=== PATIENT | male | born 1985 | race Caucasian/White ===

== ENCOUNTER 2021-12-08 12:13 | Observation (INO) | payer BC ==
--- OUTSIDE RECORDS SUMMARY | 2021-12-08 12:15 | XMS REPORT | Continuity of Care Document ---
:1985 Author Organization [facility] t Address [address] [place] [address] [address]. [address] [place] [address] Care Team Providers Name Role Phone Toya SPENCER Attending Clinician Unavailable Trevon Desir DO Attending Clinician Tj SEVERINO I Attending Clinician Bipin Leon MD Attending Clinician BIPIN LEON Attending Clinician Unavailable Doctor Unassigned, Name Attending Clinician Unavailable Nena SEVERINO Attending Clinician Payers Payer Name Policy Type Policy Number Effective Date Expiration Date S ource PPO/EPO - BCBS [id number] CHOICE/CHOICE [id number] PLUS/OPTIONS [facility] Problems Condition Condition Condition Status Onset Resolution Last Treating Co mments Source Name Details Category Date Date Treatment Clinician Date Screening Screening Disease Active 2017-09 Perry anurag for for 1-30 College metabolic metabolic 00:00: of disorder disorder 00 Medici n e Screening Screening Disease Active 2017-09 Perry anurag for for 1-30 College metabolic metabolic 00:00: of disorder disorder 00 Medici n e Hypogonadi Hypogonadi Disease Active 2016-09 [employer] [facility] sm in male sm in male 2-05 Co llege 00:00: of 00 Medicin e Allergies, Adverse Reactions, Alerts Allergy Allergy Status Severity Reaction(s) Onset Inactive Treating Comm ents Source Name Type Date Date Clinician Fish-Enrrique Propensi Active Anaphylaxis 2018-09 [facility] ived ty to 0-10 College Products adverse 00:00: of reaction 00 Medicin s to e drug [place] [address] [place] ty to Vomiting 01-13 [place] adverse 00:00: of reaction 00 Medicin s to e drug NO KNOWN Drug Active [facility] ALLERGIE Class ity of S [facility] Social History Social Habit Start Date Stop Date Quantity Comments Source Exposure to Not sure [facility] Martha e of SARS-CoV-2 Medicine (event) Tobacco use and 2020-12-13 2020-12-13 Never used [facility] Co llege of exposure 00:00:00 00:00:00 Medicine Alcohol intake 2020-07-26 2020-07-26 Ex-drinker University of 00:00:00 00:00:00 (finding) [facility] Alcohol Comment 2016-12-12 2016-12-12 socially [facility] Co llege of 00:00:00 00:00:00 Medicine Sex Ass[birth year] At [birth year] [facility] y of 00:00:00 00:00:00 [facility] Smoking Status Start Date Stop Date Source Unknown if ever smoked [facility] y of [facility] Never smoker [facility] o f Medicine Medications Ordered Filled Start Stop Current Ordering Indication Dosage Frequency Signature Comments Components Source Medication Medication Date Date Medication? Clinician (SIG) Name Name testosteron 2019-09 Yes 200mg 200 mg by Univers e cypionate -02 Intramuscu it y of 200 mg/mL 15:30: lar route Wolf as injection 19 weekly. [facility] testosteron 2019-09 Yes 200mg 200 mg by Univers e cypionate -02 Intramuscu it y of 200 mg/mL 15:30: lar route Wolf as injection 19 weekly. [facility] testosteron 2019-09 Yes 200mg 200 mg by Univers e cypionate -02 Intramuscu it y of 200 mg/mL 15:30: lar route Wolf as injection 19 weekly. [facility] meloxicam 2019-09 Yes [id number] 15mg Take 1 Un vandana 15 mg 1-02 tablet by ity of tablet 00:00: mouth [place] 00 daily. [facility] meloxicam 2019-09 Yes [id number] 15mg Take 1 Un vandana 15 mg 1-02 tablet by ity of tablet 00:00: mouth [place] 00 daily. [facility] meloxicam 2019-09 Yes [id number] 15mg Take 1 Un vandana 15 mg 1-02 tablet by ity of tablet 00:00: mouth [place] 00 daily. [facility] testosteron Yes Inject [facility] or e cypionate 3-09 into the [place] (DEPOTESTOT 13:46: muscle of ERONE 38 once. Medicin CYPIONATE) e 200 MG/ML injection testosteron Yes Inject [place] or e cypionate 3-09 [place] (DEPOTESTOT 13:46: muscle of ERONE 38 once. Medicin CYPIONATE) e 200 MG/ML injection testosteron Yes Inject [place] or e cypionate 1-27 [place] (DEPOTESTOT 22:54: muscle of ERONE 47 once. Medicin CYPIONATE) e 200 MG/ML injection azithromyci 2018-09 Yes TAKE 2 [facility] or n 0-13 TABLETS BY [place] (ZITHROMAX) 00:00: MOUTH of 250 MG 00 TODAY, Medicin tablet THEN TAKE e 1 TABLET DAILY FOR 4 DAYS azithromyci 2018-09 2020- No TAKE 2 Perry anurag n 0-13 03-09 TABLETS BY [place] (ZITHROMAX) 00:00: 00:00 MOUTH of 250 MG 00 :00 TODAY, Medicin tablet THEN TAKE e 1 TABLET DAILY FOR 4 DAYS testosteron Yes Inject [facility] or e cypionate 9-17 into the [place] (DEPOTESTOT 14:33: muscle of ERONE 38 once. Medicin CYPIONATE) e 200 MG/ML injection anastrozole 2016-09 Yes Take 1/2 [facility] (ARIMIDEX) 2-05 tab by [place] 1 MG tablet 00:00: mouth of 00 three Medicin times e weekly anastrozole 2016-09 Yes Take 1/2 [facility] (ARIMIDEX) 2-05 tab by [place] 1 MG tablet 00:00: mouth of 00 three Medicin times e weekly anastrozole 2016-09 Yes Take 1/2 [facility] (ARIMIDEX) 2-05 tab by [place] 1 MG tablet 00:00: mouth of 00 three Medicin times e weekly anastrozole 2016-09 Yes Take 1/2 [facility] (ARIMIDEX) 2-05 tab by [place] 1 MG tablet 00:00: mouth of 00 three Medicin times e weekly Vital Signs Vital Name Observation Time Observation Value Comments Source Systolic blood 2020-12-13 18:14:00 129 mm[Hg] [facility] Medicine Diastolic blood 2020-12-13 18:14:00 86 mm[Hg] [facility] pressure Medicine Heart rate 2020-12-13 18:14:00 75 /min [facility] Body height 2020-12-13 18:14:00 185.4 cm [facility] Body weight 2020-12-13 18:14:00 112.038 kg [facility] BMI 2020-12-13 18:14:00 32.59 kg/m2 [facility] Systolic blood 2020-07-26 15:29:00 133 mm[Hg] Univer sity of pressure [facility] Diastolic blood 2020-07-26 15:29:00 82 mm[Hg] Unive rsity of pressure [facility] Heart rate 2020-07-26 15:29:00 69 /min Universi ty [facility] Body temperature 2020-07-26 15:29:00 36.56 Rajwinder Univ ersity of [facility] Body height 2020-07-26 15:29:00 182.9 cm [facility]i [facility] Body weight 2020-07-26 15:29:00 116.121 kg [facility] BMI 2020-07-26 15:29:00 34.72 kg/m2 [facility] Systolic blood 2020-07-26 15:29:00 133 mm[Hg] Univer sity of pressure [facility] Diastolic blood 2020-07-26 15:29:00 82 mm[Hg] Unive rsity of pressure [facility] Heart rate 2020-07-26 15:29:00 69 /min [facility] Body temperature 2020-07-26 15:29:00 36.56 Rajwinder Univ ers[facility] Body height 2020-07-26 15:29:00 182.9 cm [facility]i [facility] Body weight 2020-07-26 15:29:00 116.121 kg [facility] BMI 2020-07-26 15:29:00 34.72 kg/m2 Universi ty of [facility] Systolic blood 2019-12-01 13:46:00 138 mm[Hg] [facility] pressure Medicine Diastolic blood 2019-12-01 13:46:00 82 mm[Hg] [facility] Medicine Heart rate 2019-12-01 13:46:00 80 /min [facility] ollege of Medicine Body height 2019-12-01 13:46:00 188 cm [facility] ollege of Medicine Body weight 2019-12-01 13:46:00 108.863 kg [facility] ollege of Medicine BMI 2019-12-01 13:46:00 30.81 kg/m2 [facility] Systolic blood 2019-10-20 22:54:00 127 mm[Hg] [facility] Medicine Diastolic blood 2019-10-20 22:54:00 79 mm[Hg] [facility] Medicine Heart rate 2019-10-20 22:54:00 69 /min [facility] ollege of Medicine Body height 2019-10-20 22:54:00 188 cm [facility] Body weight 2019-10-20 22:54:00 108.863 kg [facility] BMI 2019-10-20 22:54:00 30.81 kg/m2 [facility] Diastolic blood 2019-06-10 14:33:00 79 mm[Hg] [facility] Medicine Heart rate 2019-06-10 14:33:00 83 /min [facility] Respiratory rate 2019-06-10 14:33:00 18 /min [facility] Body height 2019-06-10 14:33:00 188 cm [facility] Body weight 2019-06-10 14:33:00 104.327 kg [facility] BMI 2019-06-10 14:33:00 29.53 kg/m2 [facility] Systolic blood 2019-06-10 14:33:00 124 mm[Hg] [facility] Procedures Procedure Date / Time Performed Performing Clinician [facility] e LIPID PANEL 2020-12-13 18:45:00 Chong Spencer I [facility] PSA,TOTAL AND FREE 2020-12-13 18:45:00 Chong Spencer I [facility] HEMATOCRIT 2020-12-13 18:45:00 Chong Spencer I [facility] ESTRADIOL 2020-12-13 18:45:00 Chong Spencer [facility] llege of Medicine PROLACTIN 2020-12-13 18:45:00 Tj [facility] llege of Medicine TESTOSTERONE, 2020-12-13 18:45:00 [facility] FREE/TOTAL [facility] Medicine ESTRADIOL 2019-10-21 00:27:00 Tj [facility] llege of Medicine PROLACTIN 2019-10-21 00:27:00 [facility] llege of Medicine TESTOSTERONE, 2019-10-21 00:27:00 [facility] llege of FREE/TOTAL [facility] Medicine Plan of Care Planned Activity Planned Date Details Comments Source Diagnostic Test 2019-12-15 [facility](URO DEPT) [code = Expected: [facility] Pending 00:00:00 03914-6] 12/15/2019 of Medicine (Approximate), Expires: 12/31/2019 Diagnostic Test 2019-12-15 LH(URO DEPT) [code = Expected: [facility] Pending 00:00:00 85286-7] 12/15/2019 of Medicine (Approximate), Expires: 12/31/2019 Diagnostic Test 2019-12-15 TESTOSTERONE-TOTAL(URO Expected: [facility] Pending 00:00:00 DEPT) [code = 2986-8] 12/15/2019 of Med icine (Approximate), Expires: 12/31/2019 Diagnostic Test 2019-12-15 ESTRADIOL,FEMALE(URO Expected: [facility] Pending 00:00:00 DEPT) [code = 2243-4] 12/15/2019 of Med icine (Approximate), Expires: 12/31/2019 Diagnostic Test 2019-12-15 SEMEN ANALYSIS(URO Expected: [facility] Pending 00:00:00 DEPT) [code = 73736-2] 12/15/2019 of Me dicine (Approximate), Expires: 12/31/2019 Diagnostic Test 2019-12-15 PELLET COUNT(URO DEPT) Expected: [facility] Pending 00:00:00 [code = 15253] 12/15/2019 of Medicine (Approximate), Expires: 12/31/2019 Future Scheduled FLU VACCINE > 6 MONTHS [employer] Test [code = FLU VACCINE > 6 of M edicine MONTHS] Future Scheduled BMI FOLLOW UP PLAN [employer] Test [code = BMI FOLLOW UP of Med icine PLAN] Future Scheduled TETANUS SHOT (ADULT) Perry anurag [employer] Test [code = TETANUS SHOT of Medi cine (ADULT)] Future Scheduled BMI FOLLOW UP PLAN [employer] Test [code = BMI FOLLOW UP of Med icine PLAN] Future Scheduled HIV SCREENING [code = [employer] Test HIV SCREENING] of Medicine Future Scheduled FLU VACCINE > 6 MONTHS [employer] Test [code = FLU VACCINE > 6 of M edicine MONTHS] Future Scheduled INSULIN LIKE GROWTH Ordered: [facility] [employer] Test FACTOR(IGF-1) [code = 10/20/2019 of Med icine 2484-4] Future Scheduled INSULIN LIKE GROWTH Ordered: [facility] Test FACTOR(IGF-1) [code = 10/20/2019 of Med icine 2484-4] Future Scheduled TETANUS SHOT (ADULT) [facility] anur[employer] Test [code = TETANUS SHOT of Medi cine (ADULT)] Future Scheduled HIV SCREENING [code = [employer] Test HIV SCREENING] of Medicine Future Scheduled FLU VACCINE > 6 MONTHS [employer] Test [code = FLU VACCINE > 6 of M edicine MONTHS] Future Scheduled BMI FOLLOW UP PLAN [employer] Test [code = BMI FOLLOW UP of Med icine PLAN] Future Scheduled TETANUS SHOT (ADULT) [employer] Test [code = TETANUS SHOT of Medi cine (ADULT)] Future Scheduled HIV SCREENING [code = [employer] Test HIV SCREENING] of Medicine Future Scheduled FLU VACCINE > 6 MONTHS [employer] Test [code = FLU VACCINE > 6 of M edicine MONTHS] Future Scheduled BMI FOLLOW UP PLAN [employer] Test [code = BMI FOLLOW UP of Med icine PLAN] Future Scheduled TETANUS SHOT (ADULT) [employer] Test [code = TETANUS SHOT of Medi cine (ADULT)] Future Scheduled COVID-19 Vaccine (1) [employer] Test [code = COVID-19 of Medicine Vaccine (1)] Future Scheduled Hepatitis C screening [employer] Test (procedure) [code = of Medic ine 895353202] Future Scheduled Human immunodeficiency [employer] Test virus screening of Medicine (procedure) [code = 565585303] Encounters Start End Encounter Admission Attending Care Care Encounter Source Date/Time Date/Time Type Type Clinicians Facility Department ID 2021-07-22 2021-07-22 Outpatient MAGDALENA SPENCER [facility] [id number] [facility] 14:49:33 15:23:45 CHONG guerrero of Medicin e 2020-12-14 2020-12-14 Patient Thang [facility] [id number] Univers 00:00:00 00:00:00 Outreach Luke PRIMARY [id number] i ty of [facility] [place]2.[place] [id number] [place] dical [address] [place] 2020-12-13 2020-12-13 Office MAGDALENA Spencer [id number] [facility] 10:38:47 14:09:17 Visit Chong Pittman AMBULATOR [id number] College Y 0.2.7.2.686 of [id number] [facility] joellen 300 e 2020-07-26 2020-07-26 Office [facility] [id number] [facility] 09:18:16 09:48:16 Visit [facility] [id number] it y of [place] 4.2.7.2.686 [place] as Professio [id number] Ks dicma nal [address] [place] [address] 2020-07-26 2020-07-26 Office [facility] 1.2.840.114 [id number] 09:18:16 09:48:16 Visit [facility] [id number] [place] 4.2.7.2.686 Professio [id number] nal [facility] Office Building One 2020-07-26 2020-07-26 [facility] [id number] Univers 09:30:00 09:30:00 NIRMALA buck of [facility] 2020-07-26 2020-07-26 Letter Doctor REAL 1.2.840.114 [id number] Univers 00:00:00 00:00:00 (Out) Unassigned, SKYE 350.1.13.10 ity of [place] [facility] 4.2.7.2.686 Wolf as [id number] Medi sarwat 044 Branch 2019-12-01 2019-12-01 Office MAGDALENA Spencer 1.2.840.114 [id number] [facility] 08:36:32 11:39:53 Visit Chong Pittman AMBULATOR 350.1.13.21 College Y 0.2.7.2.686 of [id number] Medi joellen 300 e 2019-10-20 2019-10-20 Office MAGDALENA Spencer 1.2.840.114 [id number] [facility] 15:31:49 17:52:50 Visit Chong Pittman AMBULATOR 350.1.13.21 College Y 0.2.7.2.686 of [id number] Medi joellen 300 e 2019-06-10 2019-06-10 Office MAGDALENA Barrett [id number] [facility] 09:26:19 12:25:14 Visit Del AMBULATOR 350.1.13.21 College Y 0.2.7.2.686 of [id number] [facility] joellen 300 e Results Test Description Test Time Test Comments Results Result Comments Source ESTRADIOL 2020-12-14 11:17:37 Test Item Value Reference Range Interpretation Comme nts ESTRADIOL LEVEL (test code 22.5 PG/ML See_Comment Note: Values in the range = 2243-4) of 17-25 PG/ML may demonstrate increase d imprecision. Clinical correl ation is recommended. Unless Otherwise Indic ated, All Testing Performed At: Clinical Pathology [facility], [address] [place] [address] Laboratory Dire ctor: Juan Acuna M.D. CLIA Number [id number] Cap Accreditation [place]. [id number] [Automated mess age] The system which generated this result transmitted ref erence range: <=60.7. The ref erence range was not used to int erpret this result as normal/abnor mal. [id number] 11:17:37 Test Item Value Reference Range Interpretation Comments PROLACTIN (test See_Comment NOTE: Me thodology is Cristobal code = 2842-3) Shiela Electro chemiluminescence Immunoassay (E CLIA). Values obtained with d ifferent assays/manufact urers cannot be used interchang eably. Results should not be u sed as sole basis to establ connie the presence or abs ence of malignancy. Unless Otherwise Indic ated, All Testing Perform ed At: [facility], [address] [place] [address] 7830 4 Laboratory Dire ctor: Juan Acuna M.D. CLIA Number [id number] Cap Accreditation [place] o. [id number] [Automated mess age] The system which generated this result transmitted ref erence range: 4.0 - 26.0 NG/M L. The reference range was not u sed to interpret this result as normal/abnormal. [facility],TOTAL AND [id number] 11:17:37 Test Item Value Reference Range Interpretation Comments PSA (test code See_Comment [Automated m essage] The system = 2857-1) which generated this result transmitted ref erence range: <=4.00 NG/ML. T he reference range was not used to interpret this result as yamil l/abnormal. PSA, FREE NG/ML (test code = 54827-5) PSA, % FREE 36 % SEE BELOW Methodology i s Cristobal Shiela (test code = Electrochemilum inescence 64431-6) Immunoassay wit h World Health Organization (W HO) calibration. $$$$ $ INTERPRETIVE INFORMATION $$$ $$ INTERPRETIVE TABLE: Probabil ity of prostatic carcinoma based on percent of free PSA in men with total PSA OF 4.00-10.00 ng/m L and negative digital rectal examination: Patient Age Free PSA 50-59 years 60-69 years >=70 years (%) (%) (%) (%) <=1 0 49 5 8 65 11-18 27 34 41 19-25 18 24 30 >=26 9 12 16 INTERPRETIVE TABLE: Sensitiv ity and specificity for prostate ca rcinoma, men of all age groups, no prior stratification by total PSA: Free PSA cutoff Sensitivity Specificity (Less than % ) (%) (%) 23 86 30 25 9 3 20 27 96 14 (Ref: Elizabeth JOSEPH et al. DAYO; 277: 1193-3508. Guerda post YT et al. Urology; 47:518 -524. Jonathan RP et al. Urology; 48 :45-50.) Unless Otherwis e Indicated, All Testing Perform ed At: [facility], [address] [place] [address] Ink Printer: [place] EngIA Number [id number] [place] [id number] [facility], FREE/TOTAL [id number] 11:09:20 Test Item Value Reference Range Interpretation Comments TESTOSTERONE LEVEL See_Comment [Automat ed message] (test code = 2986-8) The sys tem which generated this result transmitted ref erence range: 300 - 1, 080 NG/DL. The refe rence range was not u sed to interpret this result as normal/abnor mal. SEX HORMONE BINDING See_Comment [Automa chuckie message] GLOBULIN (test code = The sy stem which 4592-1) generated this result transmitted ref erence range: 16.5 - 5 5.9 NMOL/L. The ref erence range was not u sed to interpret this result as normal/abnor mal. CALC FREE 186.4 PG/ML 47.0-244.0 Unless TESTOSTERONE (test Otherwise Indicated, code = 2991-8) All Testing P erformed At: Clin [facility], [address] [place] [address] Laboratory Dire ctor: Juan post M.D. CLI A Number [id number] [facility] [id number] [facility] CenterLIPID [id number] 08:25:52 Test Item Value Reference Range Interpretation Comments CHOLESTEROL (test code See_Comment [Aut omated message] = 3-3) The system [facility] generated this result transmitted ref erence range: <200 MG/ DL. The reference range was not used to int erpret this result as normal/abnormal . TRIGLYCERIDES (test See_Comment [Automa chuckie message] code = 2571-8) The system [facility] generated this result transmitted ref erence range: <150 MG/ DL. The reference range was not used to int erpret this result as normal/abnormal . HDL CHOLESTEROL (test See_Comment [Auto mated message] code = 2085-9) The system [employer] generated this result transmitted ref erence range: >39 MG/D L. The reference range was not used to int erpret this result as normal/abnormal . LDL CHOLESTEROL See_Comment H NOTE: CALCU LATED LDL CALCULATED (test code = [place] [address]-9) LOPEZ-BAILEY METHOD WHICHINCLUDES ADJUSTABLE TRIGLYCERIDE:VL DL CHOLESTEROL RAT IO.THIS FACTOR VARIES B Y MEASURED TRIGLY CERIDE AND NON-HDLCHOL ESTEROL CONCENTRATIONS WITH INCREASED CALCU LATED LDL SEENIN HIGH ER TRIGLYCERIDE OR LOWER NON-HDL SPECIME NS. FOR MOREINFORMATION , SEE CLIENT ANNOUNCE MENT AT [email or web address] [Automated mess age] The system [employer] generated this result transmitted ref erence range: <100 MG/ DL. The reference range was not used to int erpret this result as normal/abnormal . LDL/HDL RATIO, SERUM See_Comment Unless (test code = 34842-4) Otherw ise Indicated, All Testing Per formed At: [facility], [address] [place] [address] Laboratory Dire ctor: Juan post M.D. CLIA Num kaylie [id number] Cap Accreditation N o. [Auto mated message] The sy stem which generated this result transmit chuckie reference range : <3.55 RATIO. The refe rence range was not u sed to interpret this result as normal/abnor mal. Lab Interpretation Abnormal (test code = 94518-5) [facility] [id number] 07:39:35 Test Item Value Reference Range Interpretation Comments HEMATOCRIT (test code = 52.6 % 40.0-51.0 H Unless ) Otherwise Indic ated, All Testing Per formed At: [facility], [address] [place] [address] Laboratory Dire ctor: Juan post M.D. CLIA Num kaylie [id number] [employer] Accreditation N o. Lab Interpretation Abnormal (test code = 34941-8) [facility], FREE/TOTAL [id number] 12:37:53 Test Item Value Reference Range Interpretation Comments TESTOSTERONE LEVEL See_Comment L [Automat ed message] (test code = 2986-8) The sys tem which generated this result transmitted ref erence range: 300 - 1, 080 NG/DL. The refe rence range was not u sed to interpret this result as normal/abnor mal. SEX HORMONE BINDING See_Comment NOTE: N EW FORMULATION GLOBULIN (test code = OF SHB G REAGENT 01310-2) EFFECTIVE 07/07. THISCHANGE IS ESTABLISHED TO CORRECT LONG-TERM DRIFT IN ASSAY RECOVERY, AND DIGITAL IMAGING SPECIALIST DO ES NOT PROVIDE GUIDANC E TO UPDATE REFERENCEINTERV ALS FOR [facility] OR CALCULA CHUCKIE FREE/BIOAVAILAB LE TESTOSTERONE.NE W REAGENT LOT EVANGELINA IDATION SHOWS SHBG VALU ES 18% LOWER THAN PREVIOUS.FOR TESTOSTERONE ASSESSMENT, THI S TENDS TO INCREASE SARWAT CULATED FREEAND BIOAVAI LABLE TESTOSTERONE AN AVERAGE OF 12% FOR ADULT MALES AND 16% FOR ADULT FEMALES. FREE/BIOAVAILAB LE TESTOSTERONE WI LL BEEVALUATED IN THE PATIENT POPULAT ION TO DETERMINE SUITA BILITY OFESTABLISHED REFERENCE RANGE S. [Automated mess age] The system [employer] generated this result transmitted ref erence range: 16.5 - 5 5.9 NMOL/L. The ref erence range was not u sed to interpret this result as normal/abnor mal. CALC FREE 40.7 PG/ML 47-244 L Unless TESTOSTERONE (test Otherwise Indicated, code = 2991-8) All Testing P erformed At: Clin [facility], [address] [place] [address] Laboratory Dire ctor: Juan post M.D. CLIA Num kaylie [id number] Cap Accreditation N o. Lab Interpretation Abnormal (test code = 56058-6) [facility] [id number] 11:59:18 Test Item Value Reference Range Interpretation Comments ESTRADIOL LEVEL (test <17.0 See_Comment Note: Estradiol code = 2243-4) sensitivity i s 17 PG/ML. If lower levels of quantitation are necessary, cons ider ultrasensitive estradiol by LC -MS/MS. Unless Oth erwise Indicated, All Testing Performed At: [facility], [address] [place] [address] Laboratory Di noreen: Juan post M.D. CLIA Number [id number] Cap Accreditati on No. [Auto mated message] The sy stem which generated this result transmitted ref erence range: <=60.7 P G/ML. The reference range was not used to interpr et this result as yamil l/abnormal. [id number] 11:59:18 Test Item Value Reference Range Interpretation Comments PROLACTIN (test See_Comment NOTE: Me thodology is Cristobal code = 2842-3) Shiela Electro chemiluminescence Immunoassay (E CLIA). Values obtained with d ifferent assays/manufact urers cannot be used interchang eably. Results should not be u sed as sole basis to establ connie the presence or abs ence of malignancy. Unless Otherwise Indic ated, All Testing Perform ed At: [facility], [address] [facility], [place] [address] Laboratory Dire ctor: Juan Acuna M.D. CLIA Number [id number] Cap Accreditation N o. [Automated mess age] The system which generated this result transmitted ref erence range: 4.0 - 26.0 NG/M L. The reference range was not u sed to interpret this result as normal/abnormal. [facility] LH [id number] 11:59:18 Test Item Value Reference Range Interpretation Comments FOLLICLE STIMULATING See_Comment L Values in the HORMONE (test code = range o f 0.3 - 0.9 52655-7) IU/L may demons trate increased imprecision. Cl inical correlation is recommended. [Automated mess age] The system [employer] h generated this result transmitted ref erence range: 1.5 - 12 .4 IU/L. The refer ence range was not u sed to interpret this result as normal/abnor mal. LUTEINIZING HORMONE See_Comment L V alues in the (test code = 84145-4) range of 0.3 - 0.9 IU/L may demons trate increased imprecision. Cl inical correlation is recommended. Unless Otherwis e Indicated, All Testing Performed At: [facility], [address] [place] [address] Laboratory Dire ctor: Juan post M.D. CLIA Num kaylie [id number] Cap Accreditation N o. 42225-19 [Auto mated message] The sy stem which generated this result transmit chuckie reference range : 1.2 - 8.6 IU/L. The reference range was not used to int erpret this result as normal/abnormal . Lab Interpretation Abnormal (test code = 41158-9) [facility]
[2021-12-08 12:36] LABS: Absolute Lymphocytes (CBC) 0.4 K/uL (0.7-4.9); Hematocrit 53.5 % (39.6-49.0); Lymphocytes % 3.5 % (15.3-44.8); MPV 7.4 fL (7.6-11.3); RBC Red Blood Cell Count 5.94 M/uL (4.33-5.43)
[2021-12-08 12:59] LABS: Blood Morphology Comment NOT SEEN (NOT SEEN); Platelet Estimate ADEQ; White Blood Cell Scan OK (OK)
[2021-12-08 13:01] LABS: Troponin High Sensitivity 95.7 pg/mL (<58.9)
--- NOTE | 2021-12-08 13:09 | RAD REPORT ---
EXAM DESCRIPTION: RAD - Chest Single View - 12/08/2021 1:03 pm CLINICAL HISTORY: CHEST PAIN COMPARISON: None TECHNIQUE: AP portable chest image was obtained 12/08/2021 1:03 pm . FINDINGS: Lung volumes are low. No focal lung parenchymal process seen. Heart and vasculature are no rmal. No measurable pleural effusion and no pneumothorax. No acute bony abnormality seen. No acute ao rtic findings suspected. IMPRESSION: No acute cardiopulmonary process.
[2021-12-08] MEDS ORDERED: ASPIRIN 81 MG CHEWABLE TABLET ONE (13:17)
[2021-12-08] MEDS ORDERED: MORPHINE 4 MG/ML SYR ONE (13:18)
[2021-12-08] MEDS ORDERED: ONDANSETRON 4 MG/2 ML VIAL ONE (13:18)
--- NOTE | 2021-12-08 13:38 | ER ---
Nurse's Notes [facility] Name: Jordan Crespo Age: 36 yrs Sex: Male : 1985 Arrival Date: 12/08/2021 Time: 12:16 Bed 28 Private MD: Diagnosis: Chest pain, unspecified Presentation: 12/08 12:15 Chief complaint: Patient states: started having chest pain middle abdomen on my way to tw2 work this morning and has just gotten worse throughout the day. +nauseousness. Initial Sepsis Screen: Does the patient meet any 2 criteria? Yes Does the patient have a suspected source of infection? No. Patient's initial sepsis screen is negative. Risk Assessment: Do you want to hurt yourself or someone else? Patient reports no desire to harm self or others. Note provider PANFILO Kaur in triage room performing assessment. Onset of symptoms was December 08, 2021. 12:15 Acuity: NISA 3 tw2 12:20 Coronavirus screen: At this time, the client does not indicate any symptoms associated tw2 with coronavirus-19. Ebola Screen: Patient denies travel to an Ebola-affected area in the 21 days before illness onset. 12:20 Method Of Arrival: Ambulatory tw2 Triage Assessment: 12:23 General: Appears in no apparent distress. uncomfortable, Behavior is cooperative, tw2 appropriate for age, anxious. Pain: Complains of pain in epigastric area and chest pain. Historical: - Allergies: 12:25 SHELLFISH; tw2 - Home Meds: 12:22 testosterone cypionate intramuscular [Active]; tw2 - PMHx: 12:22 None; tw2 - PSHx: 12:22 b/l knee sx; tw2 - Immunization history:: Adult Immunizations. - Social history:: Smoking status: . Screenin:24 Abuse screen:. Nutritional screening: No deficits noted. Tuberculosis screening: No tw2 symptoms or risk factors identified. Fall Risk None identified. Assessment: 12:28 General: Appears in no apparent distress. uncomfortable, Behavior is calm, cooperative, ss7 appropriate for age. Pain: Complains of pain in epigastric area. Neuro: No deficits noted. Cardiovascular: Heart tones Capillary refill < 3 seconds Pulses. Respiratory: Breath sounds are clear bilaterally. GI: Abdomen is non-distended, Bowel sounds present X 4 quads. Reports diarrhea, nausea. : No deficits noted. EENT: No deficits noted. Derm: No deficits noted. Musculoskeletal: No deficits noted. Vital Signs: 12:20 BP 147 / 94; Pulse 97; Resp 18; Temp 99.4(TE); Pulse Ox 95% on R/A; Weight 113.4 kg tw2 (R); Height 6 ft. 2 in. (187.96 cm); Pain 7/10; 13:00 BP 135 / 89; Pulse 94; Resp 18; Pulse Ox 96% on R/A; ss7 14:30 BP 126 / 79; Pulse 89; Resp 18; Pulse Ox 96% on R/A; ss7 16:00 BP 120 / 73; Pulse 100; Resp 18; Pulse Ox 96% on R/A; ss7 17:00 BP 117 / 71; Pulse 93; Resp 18; Pulse Ox 98% on R/A; ss7 18:00 BP 120 / 63; Pulse 93; Resp 18; Pulse Ox 97% on R/A; ss7 19:00 BP 137 / 79; Pulse 94; Resp 18; Pulse Ox 97% on R/A; ss7 12:20 Body Mass Index 32.10 (113.40 kg, 187.96 cm) tw2 ED Course: 00:25 Inserted saline lock: 20 gauge in left antecubital area, using aseptic technique. ss7 12:16 Patient arrived in ED. kb 12:16 Ale[facility] Fields [facility]C [facility]. kb 12:16 Jose A Prescott DO is Attending Physician. kb 12:17 Placed in gown. Bed in low position. ekg monitor on. Pulse ox on. NIBP on. tw2 12:21 Triage completed. tw2 12:22 Kanika Moss, RN is Primary Nurse. ss7 12:23 Arm band placed on. tw2 12:28 Troponin HS Sent. ss7 12:28 CBC with Diff Sent. ss7 12:28 Basic Metabolic Panel Sent. ss7 12:29 No provider procedures requiring assistance completed. ss7 13:03 XRAY Chest (1 view) In Process Unspecified. EDMS 13:37 Prince Alva MD is Hospitalizing Provider. kb 13:51 D-Dimer Sent. ss7 13:51 UDS Sent. ss7 13:51 COVID-19 SARS RT PCR (Document "Date of Onset" if Symptomatic) Sent. ss7 16:10 Warm blanket given. Diet tray given. ss7 18:21 Report given to Brandt. ss7 18:24 Patient admitted, IV remains in place. ss7 Administered Medications: 13:15 Drug: morphine 4 mg Route: IVP; Site: left antecubital; ss7 14:52 Follow up: Response: Pain is decreased ss7 13:15 Drug: Zofran (Ondansetron) 4 mg Route: IVP; Site: left antecubital; ss7 14:52 Follow up: Response: Nausea is decreased ss7 13:17 Drug: Aspirin Chewable Tablet 324 mg Route: PO; ss7 14:52 Follow up: Response: No adverse reaction ss7 13:51 Drug: NS 0.9% 1000 ml Route: IV; Rate: 1000 ml; Site: left antecubital; ss7 14:50 Follow up: Response: No adverse reaction; IV Status: Completed infusion ss7 Outcome: 13:37 Decision to Hospitalize by Provider. kb 18:23 Admitted to Med/surg via wheelchair, with chart, Report called to Brandt ss7 18:24 Condition: good ss7 19:54 Patient left the ED. tiara Signatures: Dispatcher [employer] EDMS Alecia Fields, PANFILO-Elizabeth HUSSEINP-Carolynn Wilhelm, RN RN tw2 Rupa Peoples, RN Kanika Jung RN RN ss7 Corrections: (The following items were deleted from the chart) 12:23 12:22 Home Meds: None; 12:25 12:22 Allergies: No Known Allergies; tw 14:50 14:00 BP 126 / 79; Pulse 89bpm; Resp 18bpm; Pulse Ox 96% RA; ss7 ss7
--- NOTE | 2021-12-08 13:38 | EDPHYS ---
Physician Documentation [facility] Name: Jordan Crespo Age: 36 yrs Sex: Male : 1985 Arrival Date: 12/08/2021 Time: 12:16 Bed 28 Private MD: ED Physician Jose A Prescott HPI: 12/08 12:18 This 36 yrs old Male presents to ER via Unassigned with complaints of chest pain. kb 12:18 The patient or guardian reports chest pain that is located primarily in the epigastric kb area. The pain does not radiate. Associated signs and symptoms: Pertinent positives: nausea. The chest pain is described as sharp. Duration: The patient or guardian reports a single episode, that is still ongoing. Modifying factors: The symptoms are alleviated by nothing. the symptoms are aggravated by nothing. Severity of pain: At its worst the pain was moderate in the emergency department the pain is unchanged. The patient has not experienced similar symptoms in the past. The patient has not recently seen a physician. Pt reports epigastric/substernal chest pain that started at 0500 this morning. States the pain has been constant. Came now because pain has not gone away. Historical: - Allergies: 12:25 SHELLFISH; tw2 - Home Meds: 12:22 testosterone cypionate intramuscular [Active]; tw2 - PMHx: 12:22 None; tw2 - PSHx: 12:22 b/l knee sx; tw2 - Immunization history:: Adult Immunizations. - Social history:: Smoking status: . ROS: 12:18 Constitutional: Negative for fever, chills, and weight loss. kb 12:18 Cardiovascular: Positive for chest pain, Negative for edema, orthopnea, palpitations, paroxysmal nocturnal dyspnea. 12:18 Abdomen/GI: Positive for nausea. 12:18 All other systems are negative. Exam: 12:18 Constitutional: This is a well developed, well nourished patient who is awake, alert, kb and in no acute distress. Head/Face: Normocephalic, atraumatic. ENT: Moist Mucous membranes Cardiovascular: Regular rate and rhythm with a normal S1 and S2. No gallops, murmurs, or rubs. No pulse deficits. Respiratory: Respirations even and unlabored. No increased work of breathing. Talking in full sentences Skin: Warm, dry with normal turgor. Normal color. MS/ Extremity: Pulses equal, no cyanosis. Neurovascular intact. Full, normal range of motion. Neuro: Awake and alert, GCS 15, oriented to person, place, time, and situation. Moves all extremities. Normal gait. Psych: Awake, alert, with orientation to person, place and time. Behavior, mood, and affect are within normal limits. 12:29 ECG was reviewed by the Attending Physician. kb Vital Signs: 12:20 BP 147 / 94; Pulse 97; Resp 18; Temp 99.4(TE); Pulse Ox 95% on R/A; Weight 113.4 kg tw2 (R); Height 6 ft. 2 in. (187.96 cm); Pain 7/10; 13:00 BP 135 / 89; Pulse 94; Resp 18; Pulse Ox 96% on R/A; ss7 14:30 BP 126 / 79; Pulse 89; Resp 18; Pulse Ox 96% on R/A; ss7 16:00 BP 120 / 73; Pulse 100; Resp 18; Pulse Ox 96% on R/A; ss7 17:00 BP 117 / 71; Pulse 93; Resp 18; Pulse Ox 98% on R/A; ss7 18:00 BP 120 / 63; Pulse 93; Resp 18; Pulse Ox 97% on R/A; ss7 19:00 BP 137 / 79; Pulse 94; Resp 18; Pulse Ox 97% on R/A; ss7 12:20 Body Mass Index 32.10 (113.40 kg, 187.96 cm) tw2 MDM: 12:16 Patient medically screened. kb 12:18 Data reviewed: vital signs, nurses notes. Data interpreted: Pulse oximetry: on room air kb is 100 %. Interpretation: normal. 13:37 Counseling: I had a detailed discussion with the patient and/or guardian regarding: the kb historical points, exam findings, and any diagnostic results supporting the discharge/admit diagnosis, lab results, radiology results, the need for further work-up and treatment in the hospital. Physician consultation: Prince Artie SEVERINO was contacted at 13:37, regarding admission, to the telemetry unit. patient's condition, and will see patient in ED. 12/08 12:16 Order name: Basic Metabolic Panel; Complete Time: 13:02 kb 12/08 12:16 Order name: CBC with Diff; Complete Time: 13:02 kb 12/08 12:16 Order name: Troponin HS; Complete Time: 13:02 kb 12/08 12:59 Order name: CBC Smear Scan; Complete Time: 13:02 EDMS 12/08 13:35 Order name: UDS; Complete Time: 14:06 kb 12/08 13:35 Order name: D-Dimer; Complete Time: 14:59 kb 12/08 12:16 Order name: XRAY Chest (1 view); Complete Time: 13:11 kb 12/08 13:37 Order name: COVID-19 SARS RT PCR (Document "Date of Onset" if Symptomatic); Complete kb Time: 15:51 12/08 17:37 Order name: Hemoglobin A1c; Complete Time: 17:40 EDMS 12/08 19:27 Order name: Troponin High Sensitivity EDMS 12/08 12:16 Order name: EKG; Complete Time: 12:17 kb 12/08 12:16 Order name: Cardiac monitoring; Complete Time: 12:28 kb 12/08 12:16 Order name: EKG - Nurse/Tech; Complete Time: 12:28 kb 12/08 12:16 Order name: IV Saline Lock; Complete Time: 12:28 kb 12/08 12:16 Order name: Labs collected and sent; Complete Time: 12:28 kb 12/08 12:16 Order name: O2 Per Protocol; Complete Time: 12:28 kb 12/08 12:16 Order name: O2 Sat Monitoring; Complete Time: 12:28 kb EC:29 Rate is 98 beats/min. Rhythm is regular. QRS [place] is Normal. OK interval is normal at kb 158 msec. QRS interval is normal at 88 msec. QT interval is normal at 310 msec. Administered Medications: 13:15 Drug: morphine 4 mg Route: IVP; Site: left antecubital; ss7 14:52 Follow up: Response: Pain is decreased ss7 13:15 Drug: Zofran (Ondansetron) 4 mg Route: IVP; Site: left antecubital; ss7 14:52 Follow up: Response: Nausea is decreased ss7 13:17 Drug: Aspirin Chewable Tablet 324 mg Route: PO; ss7 14:52 Follow up: Response: No adverse reaction ss7 13:51 Drug: NS 0.9% 1000 ml Route: IV; Rate: 1000 ml; Site: left antecubital; ss7 14:50 Follow up: Response: No adverse reaction; IV Status: Completed infusion ss7 Disposition Summary: 12/08/21 13:37 Hospitalization Ordered Hospitalization Status: Observation kb Provider: Prince cassandra Alva Location: Telemetry/MedSurg (observation) kb Condition: Stable kb Problem: new kb Symptoms: are unchanged kb Bed/Room Type: Standard Room Assignment: 205(12/08/21 18:12) bd Diagnosis - Chest pain, unspecified kb Discharge Instructions: - Discharge Summary Sheet Forms: - Medication Reconciliation Form kb - Work release form 2 - SBAR form kb Addendum: 12/11/2021 01:51 Co-signature as Attending Physician, Jose A Prescott DO I agree with the assessment and m s3 plan of care. Signatures: Dispatcher [employer] EDMS Alecia Fields, DELLC FIXING CARPENTER-Ckb Starr Chance Lee, FNP-Elizabeth WHITTAKER-Cla1 Carolynn Wilson, RN RN tw2 Jose A Prescott DO DO ms3 Kanika Moss, RN RN ss7 Corrections: (The following items were deleted from the chart) 12/08 12:23 12:22 Home Meds: None; 12:25 12:22 Allergies: No Known Allergies; 18:12 13:37 kb bd
[2021-12-08] MEDS ORDERED: NA CHLORIDE 0.9% 1,000 ML ONE (13:42)
--- NOTE | 2021-12-08 14:00 | P.HP ---
Certification for Inpatient Patient admitted to: Observation With expected LOS: <2 Midnights Practitioner: I am a practitioner with admitting privileges, knowledge of patient current condition, hospital course, and medical plan of care. Services: Services provided to patient in accordance with Admission requirements found in Title 42 Section 412.3 of the Code of Federal Regulations Patient History Date of Service: 12/08/21 Reason for admission: chest pain History of Present Illness: 36-year-old male with no past medical history except for chronic low testosterone. He is currently on weekly testosterone injection. He presented to the ER for evaluation of ongoing chest pain for the past 24 hours. His symptoms started earlier today while he was driving to work. He is describing a substernal chest pain, nonradiating that would not let up. He initially thought it was indigestion but his symptoms persisted. He had some take out food from a [employer] restaurant last evening and complained of abdominal discomfort the following day. Physical Examination - Physical Exam General: Alert, In no apparent distress, Cooperative Neck: Supple Respiratory: Clear to auscultation bilaterally, Normal air movement Cardiovascular: Regular rate/rhythm, Normal S1 S2 Gastrointestinal: Soft and benign, Non-distended Musculoskeletal: No clubbing, No swelling, No contractures Neurological: Normal speech, Normal affect - Studies Laboratory Data (last 24 hrs) 12/08/21 12:26: WBC 11.40 H, Hgb 18.5 H, Hct 53.5 H, Plt Count 202 12/08/21 12:26: Sodium 136, Potassium 4.0, BUN 24 H, Creatinine 1.22, Glucose 109 H Assessment and Plan - Problems (Diagnosis) (1) Chest pain Current Visit: Yes Status: Acute - Advance Directives Does patient have a Living Will: No Does patient have a Durable POA for Healthcare: No Physician Review Additional Text: Assessment Patient is a 36 year old male without PMH who presents with chest pain. His troponin was mildly elevated. He has prominent T wave inversions in the inferior leads, and V5-V6. He has no history of CAD or any other co-mo rbidities except for low Testosterone for which he is on weekly injections. Chest pain Elevated troponin PLAN: Will admit under observation with telemetry Pulmonary embolism ruled out Follow up TTE Follow up lipid panel, HbA1c I will consult cardiology for elevated troponin and T wave inversions Nuclear stress test DVT ppx
[2021-12-08 14:04] LABS: Barbiturates NEGATIVE (NEGATIVE); Benzodiazepines NEGATIVE (NEGATIVE); Cocaine NEGATIVE (NEGATIVE); METHAMPHETAM NEGATIVE (NEGATIVE); Methadone NEGATIVE (NEGATIVE); Opiates NEGATIVE (NEGATIVE); Phencyclidine NEGATIVE (NEGATIVE); THC Cannibis NEGATIVE (NEGATIVE)
[2021-12-08] MEDS ORDERED: ENOXAPARIN 40 MG/0.4 ML SQ SCH (20:14)
[2021-12-08 21:44] VITALS: BMI 33.5
[2021-12-09] MEDS ORDERED: REGADENOSON 0.4 MG/5 ML SYR IV ONE (07:10)
[2021-12-09 12:45] VITALS: BP 126/73; TEMP 97.3
[2021-12-09 14:45] VITALS: O2SAT 96
--- NOTE | 2021-12-09 15:34 | RAD REPORT ---
EXAM DESCRIPTION: NM - Rest Stress Cardiac Imaging - 12/09/2021 3:27 pm CLINICAL HISTORY: elevated trop Chest pain. COMPARISON: No comparisons TECHNIQUE: The patient was administered approximately 10mCi of Tc 99m Sestamibi prior to resting SPE CT imaging of the heart. The patient was then administered approximately 30 mCi of Tc 99m Sestamibi f ollowing exercise or pharmacologic stress. Multiplanar SPECT images were reviewed. FINDINGS: No stress induced ischemic defect is seen to suggest stress induced ischemia. No fixed def ect is seen to suggest hibernating myocardium or scarred myocardium. The end diastolic volume is 178 ml, the end systolic volume is 90 ml, and the ejection fraction is 49 %. IMPRESSION: No stress induced ischemia.
--- NOTE | 2021-12-09 15:41 | P.DS ---
Admission Date: 12/08/21 Discharge Date: 12/09/21 Disposition: ROUTINE DISCHARGE Discharge Condition: GOOD Reason for Admission: chest pain - Problems (1) Chest pain Current Visit: Yes Status: Acute Brief History of Present Illness: 36-year-old male with no past medical history except for chronic low testosterone. He is currently on weekly testosterone injection. He presented to the ER for evaluation of ongoing chest pain for the past 24 hours. His symptoms started earlier today while he was driving to work. He is describing a substernal chest pain, nonradiating that would not let up. He initially thought it was indigestion but his symptoms persisted. He had some take out food from a [facility] restaurant last evening and complained of abdominal discomfort the following day. Hospital Course: Patient is a 36 year old male without PMH who presents with chest pain. His troponin was mildly elevated. He has prominent T wave inversions in the inferior leads, and V5-V6. He has no history of CAD or any other co- morbidities except for low Testosterone for which he is on weekly injections. Nuclear stress test was negative. His A1c of 5.1 and LDL 62. He can be discharged today. Vital Signs/Physical Exam: Temp Pulse Resp BP Pulse Ox 97.3 F 80 18 126/73 96 12/09/21 12:00 12/09/21 12:00 12/09/21 12:00 12/09/21 12:00 12/09/21 12:00 General: Alert, In no apparent distress, Cooperative HEENT: Atraumatic, Normocephalic Respiratory: Normal air movement Musculoskeletal: No clubbing, No swelling, No contractures Neurological: Normal speech, Normal affect Laboratory Data at Discharge: WBC 11.40 K/uL (4.3-10.9) H 12/08/21 12:26 Hgb 18.5 g/dL (13.6-17.9) H 12/08/21 12:26 Hct 53.5 % (39.6-49.0) H 12/08/21 12:26 Plt Count 202 K/uL (152-406) 12/08/21 12:26 Sodium 136 mmol/L (136-145) 12/08/21 12:26 Potassium 4.0 mmol/L (3.5-5.1) 12/08/21 12:26 BUN 24 mg/dL (7-18) H 12/08/21 12:26 Creatinine 1.22 mg/dL (0.55-1.3) 12/08/21 12:26 Glucose 109 mg/dL (74-106) H 12/08/21 12:26 Triglycerides 114 mg/dL (<150) 12/09/21 05:40 Cholesterol 122 mg/dL (<200) 12/09/21 05:40 HDL Cholesterol 37 mg/dL (40-60) L 12/09/21 05:40 Cholesterol/HDL Ratio 3.30 12/09/21 05:40 Home Medications: Anastrozole 1 mg PO SEECOM 12/09/21 Testosterone Enanthate [Xyosted] 50 mg SQ SEECOM 12/09/21 Followup: Cynthia Zhong MD [Primary Care Provider] -
--- NOTE | 2021-12-09 21:55 | CON ---
Date of Consultation: 12/09/2021 Reason For Consultation: Chest pain with borderline troponin leak. History Of Present Illness: A 36-year-old male, who has no medical history, presented to the emergen cy room with chest pain that felt like pressure when he was driving to work, retrosternal, no radiati on, not related to exertion. 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 He does exercise on a regular basis witho ut any activity or exertion-related chest pain. Past Medical History: None. Medications: Testosterone. Allergies: NO KNOWN DRUG ALLERGIES. Family History: No premature coronary artery disease or cancer. Social History: Does not smoke or drink. Does not use any drugs. Review of Systems: All systems reviewed and they were negative except as mentioned in HPI. Physical Examination: Vital Signs: Reviewed. They are stable. Head and Neck: Pupils are equal, reactive to light. Intact eye movements. No JVD. No cervical lym phadenopathy. Neck is supple. Thyroid is not enlarged. Lungs: Clear to auscultation bilaterally. No rhonchi, rales, or crackles. No accessory muscle use. Heart: Regular rate and rhythm. No extra sounds. Abdomen: Soft and nontender. Bowel sounds positive. No organomegaly. No masses or hernia. No rig idity or rebound. Extremities: No edema, clubbing, or cyanosis. Intact pulses. Skin: No rashes. Neurologic: Alert, awake, oriented x3. No acute focal deficits appreciated. Lymph Nodes: No cervical lymphadenopathy. Investigations: White blood cell count is 11.4, hemoglobin 18.5. His hemoglobin A1c 5.2. Troponin 95 and then 77 and his LDL cholesterol was 62, HDL 37. He had exercise nuclear stress test that was negative for ischemia. Assessment And Recommendation: Chest pain, atypical, borderline, highly-sensitive troponin elevation , but a stress test failed to show any evidence of ischemia with normal ejection fraction. At this p oint, the patient was assured, can be released, and to follow up with me in the office in a week and at that time, we will re-evaluate his symptoms. If he continues to have chest pain, especially if it is with activity, then we will plan for coronary angiogram. Otherwise, this chest pain is likely no ncardiac. SR/MODL Voice ID: [id number] Report ID: [id number]
--- NOTE | 2021-12-12 07:52 | TREADPHA ---
DX: ELEVATED TROPONIN Date of Study: 12/09/2021 Ht: 6' 1 " Wt: 254 lb 11.2 oz Consulting Physician: SRIDEVI MEDICATIONS: LOVENOX HISTORY: 36 YEAR OLD MALE WITH ELEVATED TROPONIN. HISTORY OF HYPERTENSION, PROSTATE, NON SMOKER, NON DRINKER. PHYSICIAL EXAMINATION: RESTING B.P.: 120/73 RESTING H.R.: 75 RESTING EKG: SINUS WITH T DEPRESSION NI INFEROLATERAL LEADS. PROTOCOL: LEXISCAN EXERCISE TIME: 3:30 B.P. AT PEAK STRESS: 155/73 IMPRESSION: LEXISCAN INJECTED FOLLOWED BY CARDIOLITE PER PROTOCOL. SEE NUCLEAR MEDICINE REPORT. NO CHEST PAIN. NO VENTRICULAR OR SUPRAVENTRICULAR TACHYCARDIA. NO PREMATURE VENTRICULAR COMPLEXES OR PREMATURE ATRIAL COMPLEXES NOTED. NO EKG CHANGES WITH LEXISCAN.
--- NOTE | 2021-12-12 08:31 | EKG ---
Test Date: 2021-12-08 Test Time: 12:21:21 [place] Continuous Churn: ZARIA MEASUREMENT RESULTS: Intervals: Rate: 98 RI: 158 QRSD: 88 QT: 310 QTc: 395 [place]: P: 61 RI: 158 QRS: 78 T: -29 INTERPRETIVE STATEMENTS: Normal sinus rhythm ST & T wave abnormality, consider inferior ischemia Abnormal ECG No previous ECG available for comparison Electronically Signed On 12-12-21 08:23:40 CDT by John Kong
--- NOTE | 2021-12-12 08:32 | ECHO ---
HEIGHT: 6 ft 1 in WEIGHT: 254 lb 11.2 oz DATE OF STUDY: 12/09/[address]: Prince Jayna Alva MD 2-DIMENSIONAL: YES M.MODE: YES DOPPLER: YES COLOR FLOW: YES TDS: NO PORTABLE: NO DEFINITY: NO BUBBLE STUDY: NO DIAGNOSIS: CHEST PAIN CARDIAC HISTORY: CATHERIZATION: NO SURGERY: NO PROSTHETIC VALVE: NO PACEMAKER: NO MEASUREMENTS (cm) DIASTOLIC (NORMALS) SYSTOLIC (NORMALS) IVSd 1.0 (0.6-1.2) LA Diam 2.9 (1.9-4.0) LVEF 55-60% LVIDd 4.9 (3.5-5.7) LVIDs 3.6 (2.0-3.5) %FS 26% LVPWd 1.0 (0.6-1.2) Ao Diam 2.7 (2.0-3.7) 2 DIMENSIONAL ASSESSMENT: RIGHT ATRIUM: NORMAL LEFT ATRIUM: NORMAL RIGHT VENTRICLE: NORMAL LEFT VENTRICLE: NORMAL TRICUSPID VALVE: NORMAL MITRAL VALVE: NORMAL PULMONIC VALVE: NORMAL AORTIC VALVE: NORMAL PERICARDIAL EFFUSION: NONE AORTIC ROOT: NORMAL LEFT VENTRICULAR WALL MOTION: NORMAL. DOPPLER/COLOR FLOW: NORMAL. COMMENTS: NORMAL LEFT VENTRICULAR EJECTION FRACTION 55-60%. NORMAL WALL MOTION. NORMAL ECHO. TECHNOLOGIST: KEYA STARK
== END 2021-12-09 16:15 | disposition home or self-care (01) ==
LOC: ER 12:13 → ERHOLD 13:48 → 2ND 18:28
PROVIDERS: ADMIT Internal Medicine; ATTEND Internal Medicine
DX: R07.89 Other chest pain (principal); R77.8 Other specified abnormalities of plasma proteins; E29.1 Testicular hypofunction; Z20.822 Contact with and (suspected) exposure to COVID-19
CPT/HCPCS: 96361; 93005; 93017; 93306; 85025; 80048; 36415 ×2; 80061; 85379; 83036; 84484 ×2; 80307; 71045; 78452; 96375; 96374; 99285; U0003; J1650; J2785; J7030; J2405; A9500; G0378